=== PATIENT | female | born 1960 | race African-American/Black ===

== ENCOUNTER 2020-03-09 04:19 | Day surgery (SDC) | payer OTHER ==
[2020-03-08 10:34] VITALS: BMI 31.1
[2020-03-09] MEDS ORDERED: LIDOCAINE HCL 1%, 10 MG/ML (20ML VIAL) ONE (07:20)
[2020-03-09] MEDS ORDERED: DEXAMETHASONE SOD PHOSPHATE/PF 10 MG/ML SDV ONE (07:20)
[2020-03-09] MEDS ORDERED: LIDOCAINE HCL/PF 1% SDV 5ML VIAL ONE (07:20)
[2020-03-09] MEDS ORDERED: BUPIVACAINE HCL/PF 0.75% 10 ML VIAL ONE (07:21)
[2020-03-09] MEDS ORDERED: TRIAMCINOLONE ACET 40MG/1ML VIAL ONE (07:21)
[2020-03-09] MEDS ORDERED: IOHEXOL 180 MG/1 ML ML IJ ONE (08:54)
[2020-03-09] MEDS ORDERED: DEXAMETHASONE SOD PHOSPHATE 10 MG/1 ML VIAL IM ONE (08:55)
[2020-03-09] MEDS ORDERED: LIDOCAINE HCL 1% PRESERVATIVE FREE - 30ML VIAL IJ ONE (09:01)
[2020-03-09 09:50] VITALS: TEMP 97.7
[2020-03-09] MEDS ORDERED: ACETAMINOPHEN 325 MG TABLET (FP) ONE (10:14)
[2020-03-09 13:01] VITALS: BP 130/90; PULSE 80
== END 2020-03-09 10:20 | disposition home or self-care (01) ==
LOC: JASU-SURG 04:19
PROVIDERS: ATTEND Pain Medicine Pain Medicine
PROC: 3E0R33Z Introduction of Anti-inflammatory into Spinal Canal, Percutaneous Approach (ICD-10-PCS; 2020-03-09)
PROC: 3E0R3BZ Introduction of Anesthetic Agent into Spinal Canal, Percutaneous Approach (ICD-10-PCS; principal; 2020-03-09 09:00)
DX: M54.12 Radiculopathy, cervical region (principal)
CPT/HCPCS: 76000-TC-FY; J1100

== ENCOUNTER 2020-06-08 04:21 | Day surgery (SDC) | payer OTHER ==
[2020-06-07 12:39] VITALS: BMI 31.1
[2020-06-08] MEDS ORDERED: DEXAMETHASONE SOD PHOSPHATE/PF 10 MG/ML SDV ONE (07:24)
[2020-06-08] MEDS ORDERED: LIDOCAINE HCL/PF 1% SDV 5ML VIAL ONE (07:28)
[2020-06-08 11:00] VITALS: BP 141/89; PULSE 90; TEMP 97.8
== END 2020-06-08 10:54 | disposition home or self-care (01) ==
LOC: JASU-SURG 04:21
PROVIDERS: ATTEND Pain Medicine Pain Medicine
PROC: B01BYZZ Fluoroscopy of Spinal Cord using Other Contrast (ICD-10-PCS; 2020-06-08)
PROC: 3E0R33Z Introduction of Anti-inflammatory into Spinal Canal, Percutaneous Approach (ICD-10-PCS; principal; 2020-06-08 10:00)
DX: M54.12 Radiculopathy, cervical region (principal)
CPT/HCPCS: 76000-TC-FY

== ENCOUNTER 2023-03-06 14:42 | Inpatient (IN) | payer OTHER ==
[2023-03-06 14:54] VITALS: BMI 29.7
[2023-03-06 16:27] LABS: VENOUS BASE EXCESS -3.1 mmol/L (-2-2); VENOUS O2 SATURATION 32.7 % (70-80); VENOUS PCO2 43.8 mmHg (38-52); VENOUS PH 7.332 (7.310-7.410)
[2023-03-06] MEDS: ACETAMINOPHEN 1000 MG/100 ML BAG IVPB ONE (16:50)
[2023-03-06] MEDS: LACTATED RINGERS SOLUTION 1000 ML INFUS.BAG IV ONE ×2 (16:50→18:42)
[2023-03-06] MEDS ORDERED: ACETAMINOPHEN INJECTION 100 ML IVPB ONE (16:53)
[2023-03-06 16:58] LABS: HEMOGLOBIN 10.7 GM/dL (10.7-15.3); MCH 27.6 pg (25.7-33.7); MCHC 32.6 g/dl (32.0-36.0); MEAN CELL VOLUME 84.8 fl (80-96); MEAN PLT VOLUME 8.5 fl (7.5-11.1); PLATELET COUNT 432 10^3/uL (134-434); RDW 16.4 % (11.6-15.6); WHITE BLOOD COUNT 13.8 K/mm3 (4.0-10.0)
[2023-03-06 17:08] LABS: LACTIC ACID 4.4 mmol/L (0.4-2.0)
[2023-03-06 17:21] LABS: POTASSIUM 4.8 mmol/L (3.5-5.1)
[2023-03-06 17:26] LABS: CALCIUM 8.3 mg/dL (8.5-10.1)
[2023-03-06 17:27] LABS: ALBUMIN 2.7 g/dl (3.4-5.0)
[2023-03-06 17:29] LABS: BLOOD UREA NITROGEN 10.7 mg/dL (7-18)
[2023-03-06 17:30] LABS: CREATININE 1.3 mg/dL (0.55-1.3)
[2023-03-06] MEDS ORDERED: methylPREDNISolone NA SUCC 125 MG/2 ML VIAL ONE (17:30)
[2023-03-06] MEDS ORDERED: ALBUTEROL SO4 2.5/IPRATROPIUM 0.5 INH SOL 3 ML VIAL.NEB. NEB ONE (17:30)
[2023-03-06] MEDS ORDERED: ONDANSETRON 4 MG/2 ML VIAL ONE (17:30)
[2023-03-06 17:32] LABS: TOT PROT 6.9 g/dl (6.4-8.2)
[2023-03-06 17:34] LABS: BILIRUBIN,TOTAL 0.6 mg/dL (0.2-1)
[2023-03-06] MEDS: ONDANSETRON 4 MG/2 ML VIAL IVPUSH ONE (17:35)
[2023-03-06] MEDS: ALBUTEROL SO4 2.5/IPRATROPIUM 0.5 INH SOL 3 ML VIAL.NEB. NEB SCH (17:35)
[2023-03-06] MEDS: methylPREDNISolone NA SUCC 125 MG/2 ML VIAL IVPUSH ONE (17:35)
[2023-03-06 18:12] LABS: INR 1.14 (0.83-1.09)
[2023-03-06 18:13] LABS: PROTHROMBIN TIME (PATIENT) 13.2 SEC (9.7-13.0)
[2023-03-06 18:14] LABS: ACTIVATED PTT 28.8 SECONDS (25.2-36.5)
[2023-03-06 18:34] LABS: ERYTHROCYTE SEDIMENTATION RATE 86 mm/hr (0-30)
[2023-03-06 19:37] LABS: ANISOCYTOSIS 1+; MACROCYTOSIS 0; OVALOCYTE 1+
[2023-03-06 20:01] LABS: PLATELET ESTIMATE ADEQUATE
[2023-03-06] MEDS ORDERED: PIPERACILLIN/TAZOB 4.5 GM 3.375 GM in DEXTROSE 5%-WATER 100 ML IVPB ONE (20:51)
[2023-03-06] MEDS: PIPERACILLIN/TAZOB 3.375 GM 3.375 GM in DEXTROSE 5%-WATER - 50 ML IVPB ONE (21:45)
[2023-03-06 22:14] LABS: LACTIC ACID 4.3 mmol/L (0.4-2.0)
[2023-03-06] MEDS: VANCOMYCIN HCL 1,500 MG in DEXTROSE 5%-WATER - 500 ML IVPB ONE (23:12)
[2023-03-06] MEDS ORDERED: VANCOMYCIN 500 MG VIAL (RESTRICTED TO ID ONLY) ONE (23:14)
[2023-03-07] MEDS: methylPREDNISolone NA SUCC 40 MG/1 ML VIAL IVPUSH SCH ×3 (01:26→17:58)
[2023-03-07] MEDS: ALBUTEROL SO4 2.5/IPRATROPIUM 0.5 INH SOL 3 ML VIAL.NEB. NEB SCH (01:27)
[2023-03-07] MEDS ORDERED: ALBUTEROL SO4 2.5/IPRATROPIUM 0.5 INH SOL 3 ML VIAL.NEB. NEB ONE (01:39)
[2023-03-07] MEDS ORDERED: ALBUTEROL SO4 HFA INHALER IH PRN (02:28)
[2023-03-07] MEDS: PIPERACILLIN/TAZOB 4.5 GM 4.5 GM in DEXTROSE 5%-WATER 100 ML IVPB SCH ×2 (03:33→17:59)
[2023-03-07] MEDS: oxyCODONE HCL 5 MG TABLET PO ONE (05:41)
[2023-03-07] MEDS: ONDANSETRON 4 MG/2 ML VIAL IVPUSH PRN (05:41)
[2023-03-07] MEDS: MELATONIN 5 MG TABLETS PO ONE (05:42)
[2023-03-07] MEDS: AMITRIPTYLINE HCL 10 MG TABLET PO ONE (07:10)
[2023-03-07 09:59] LABS: HEMATOCRIT 26.4 % (32.4-45.2); HEMOGLOBIN 8.8 GM/dL (10.7-15.3); MCH 27.3 pg (25.7-33.7); MCHC 33.2 g/dl (32.0-36.0); MEAN CELL VOLUME 82.4 fl (80-96); MEAN PLT VOLUME 7.8 fl (7.5-11.1); PLATELET COUNT 372 10^3/uL (134-434); RDW 16.3 % (11.6-15.6); WHITE BLOOD COUNT 11.6 K/mm3 (4.0-10.0)
[2023-03-07 10:05] LABS: POTASSIUM 3.2 mmol/L (3.5-5.1)
[2023-03-07 10:06] LABS: CALCIUM 8.5 mg/dL (8.5-10.1)
[2023-03-07 10:07] LABS: ALBUMIN 2.5 g/dl (3.4-5.0); BLOOD UREA NITROGEN 11.1 mg/dL (7-18); MAGNESIUM 1.8 mg/dL (1.8-2.4)
[2023-03-07 10:10] LABS: PHOSPHOROUS 2.6 mg/dL (2.5-4.9)
[2023-03-07 10:11] LABS: BILIRUBIN,TOTAL 0.2 mg/dL (0.2-1); TOT PROT 5.8 g/dl (6.4-8.2)
[2023-03-07 10:14] LABS: LACTIC ACID 2.4 mmol/L (0.4-2.0)
[2023-03-07 10:26] LABS: ANISOCYTOSIS 3+; MACROCYTOSIS 0
[2023-03-07] MEDS: FLUTICASONE PROP 0.05% 16 GM NASAL SPRAY NS SCH (10:31)
[2023-03-07] MEDS: CYCLOBENZAPRINE HCL 10 MG TABLET (FP) PO SCH (10:31)
[2023-03-07] MEDS: ENOXAPARIN NA (PORCINE) 40 MG/0.4 ML DISP.SYRIN SQ SCH (10:32)
[2023-03-07] MEDS: BUDESONIDE/FORMETEROL FUMARATE 160/4.5 mcg INHALER IH SCH (10:32)
[2023-03-07] MEDS: TIMOLOL 0.5% OPHTHALMIC SOL 5 ML BOTTLE OU SCH (10:32)
[2023-03-07] MEDS: DORZOLAMIDE 2% HCL OPHTHALMIC SOLUTION 10 ML BOTTLE OU SCH (10:33)
[2023-03-07] MEDS: TIOTROPIUM BROMIDE 2.5 MCG (SPIRIVA) RESPIMAT INHALER IH SCH (10:33)
[2023-03-07] MEDS: LEFLUNOMIDE 10 MG TABLET PO SCH (14:30)
[2023-03-07] MEDS: AMITRIPTYLINE HCL 10 MG TABLET PO SCH (22:06)
[2023-03-07] MEDS: oxyCODONE HCL 5 MG TABLET PO SCH (22:09)
[2023-03-07] MEDS: LATANOPROST 0.005% OPHTH SOLN 2.5ML BOTTLE OU SCH (22:10)
[2023-03-08 08:33] LABS: HEMATOCRIT 23.7 % (32.4-45.2); HEMOGLOBIN 8.1 GM/dL (10.7-15.3); MCH 28.5 pg (25.7-33.7); MCHC 34.1 g/dl (32.0-36.0); MEAN CELL VOLUME 83.7 fl (80-96); MEAN PLT VOLUME 7.9 fl (7.5-11.1); PLATELET COUNT 337 10^3/uL (134-434); RBC 2.83 M/mm3 (3.60-5.2); RDW 16.6 % (11.6-15.6); WHITE BLOOD COUNT 13.9 K/mm3 (4.0-10.0)
[2023-03-08 10:12] LABS: ANISOCYTOSIS 2+; MACROCYTOSIS 0
[2023-03-08] MEDS: POTASSIUM CHLORIDE ORAL LIQUID 20 MEQ/15 ML PO ONE (11:16)
[2023-03-08] MEDS ORDERED: MAG HYDROX/AL HYDROX/SIMETH 30 ML UNIT-DOSE CUP PO PRN (11:19)
[2023-03-08] MEDS: oxyCODONE HCL 5 MG TABLET PO ONE ×2 (12:28→13:59)
[2023-03-08] MEDS: PANTOPRAZOLE SODIUM 40 MG VIAL IVPUSH SCH (12:29)
[2023-03-08] MEDS: ACETAMINOPHEN 325 MG TABLET (FP) PO ONE (12:29)
[2023-03-08] MEDS: MELATONIN 5 MG TABLETS PO PRN (22:26)
[2023-03-09 10:52] LABS: HEMATOCRIT 26.2 % (32.4-45.2); HEMOGLOBIN 8.9 GM/dL (10.7-15.3); MCH 28.4 pg (25.7-33.7); MCHC 34.2 g/dl (32.0-36.0); MEAN CELL VOLUME 83.2 fl (80-96); MEAN PLT VOLUME 7.8 fl (7.5-11.1); PLATELET COUNT 392 10^3/uL (134-434); RBC 3.14 M/mm3 (3.60-5.2); RDW 17.1 % (11.6-15.6); WHITE BLOOD COUNT 9.4 K/mm3 (4.0-10.0)
[2023-03-09 11:39] LABS: ANISOCYTOSIS 0; MACROCYTOSIS 0
[2023-03-09] MEDS: oxyCODONE HCL 5 MG TABLET PO PRN (13:26)
[2023-03-09 15:35] LABS: EPI CELLS 21 /uL (0-25.1); HYALINE CASTS 0 /uL (0-3.1); PH,URINE 6.5 (5.0-8.0); URINE APPEARANCE CLEAR; URINE BACTERIA 22 /uL (0-1359); URINE BILIRUBIN NEGATIVE (NEGATIVE); URINE COLOR YELLOW; URINE GLUCOSE (UA) NEGATIVE (NEGATIVE); URINE KETONE NEGATIVE (NEGATIVE); URINE LEUK ESTERASE TRACE (NEGATIVE); URINE NITRITE NEGATIVE (NEGATIVE); URINE PROTEIN TRACE (NEGATIVE); URINE RBC 6 /uL (0-23.9); URINE UROBILINOGEN 0.2 mg/dL (0.2-1.0); URINE WBC 8 /uL (0-25.8)
[2023-03-09 21:09] LABS: CYCLIC CITRULLINE PEPTIDE AB 15 units (0-19)
[2023-03-09] MEDS: DOCUSATE SODIUM 100 MG CAPSULE (FP) PO SCH (22:06)
[2023-03-10] MEDS ORDERED: LIDOCAINE HCL 1%, 10 MG/ML (50 mL VIAL) SQ ONE (09:37)
[2023-03-10 10:44] LABS: BASO % 0.2 % (0-2.0); HEMATOCRIT 27.9 % (32.4-45.2); HEMOGLOBIN 9.5 GM/dL (10.7-15.3); LYMPH % 3.1 % (8-40); MCH 28.5 pg (25.7-33.7); MEAN CELL VOLUME 83.8 fl (80-96); MEAN PLT VOLUME 7.6 fl (7.5-11.1); MONO % 7.1 % (3.8-10.2); NEUT % 89.6 % (42.8-82.8); PLATELET COUNT 407 10^3/uL (134-434); RBC 3.33 M/mm3 (3.60-5.2); RDW 16.7 % (11.6-15.6); WHITE BLOOD COUNT 9.1 K/mm3 (4.0-10.0)
[2023-03-10 10:51] LABS: POTASSIUM 3.6 mmol/L (3.5-5.1)
[2023-03-10 10:56] LABS: CALCIUM 7.6 mg/dL (8.5-10.1)
[2023-03-10 10:58] LABS: ALBUMIN 2.8 g/dl (3.4-5.0); MAGNESIUM 1.8 mg/dL (1.8-2.4)
[2023-03-10 11:00] LABS: CREATININE 1.3 mg/dL (0.55-1.3)
[2023-03-10 11:02] LABS: BILIRUBIN,TOTAL 0.3 mg/dL (0.2-1); TOT PROT 6.2 g/dl (6.4-8.2)
[2023-03-10] MEDS: LIDOCAINE HCL 1%, 10 MG/ML (20ML VIAL) SQ ONE (11:16)
[2023-03-10] MEDS ORDERED: ACETAMINOPHEN 325 MG TABLET (FP) PO PRN (11:50)
[2023-03-10] MEDS: ACETAMINOPHEN 325 MG TABLET (FP) PO SCH (13:01)
[2023-03-10] MEDS: MULTIVITAMINS (DAILY MVI) TABLET (FP) PO SCH (13:02)
[2023-03-10] MEDS: NICOTINE 21 MG/24 HOURS TOPICAL PATCH TD SCH (13:02)
[2023-03-10] MEDS ORDERED: ACETAMINOPHEN 1000 MG/100 ML BAG IVPB PRN (17:24)
[2023-03-10 20:11] VITALS: RESP 20
[2023-03-11 08:11] VITALS: BP 131/71; PULSE 80; TEMP 98.3
[2023-03-11 10:00] LABS: HEMATOCRIT 24.6 % (32.4-45.2); HEMOGLOBIN 8.4 GM/dL (10.7-15.3); LYMPH % 4.4 % (8-40); MCH 28.5 pg (25.7-33.7); MCHC 34.3 g/dl (32.0-36.0); MEAN CELL VOLUME 83.2 fl (80-96); MEAN PLT VOLUME 7.4 fl (7.5-11.1); MONO % 8.7 % (3.8-10.2); NEUT % 86.9 % (42.8-82.8); PLATELET COUNT 367 10^3/uL (134-434); RBC 2.95 M/mm3 (3.60-5.2); RDW 16.5 % (11.6-15.6); WHITE BLOOD COUNT 7.9 K/mm3 (4.0-10.0)
[2023-03-11 10:08] LABS: CHLORIDE 108 mmol/L (98-107); POTASSIUM 3.5 mmol/L (3.5-5.1); SODIUM 140 mmol/L (136-145)
[2023-03-11 10:10] LABS: ALBUMIN 2.4 g/dl (3.4-5.0); ANION GAP 6 mmol/L (4-13); CO2 26 mmol/L (21-32); MAGNESIUM 1.9 mg/dL (1.8-2.4)
[2023-03-11 10:12] LABS: BLOOD UREA NITROGEN 19.8 mg/dL (7-18)
[2023-03-11 10:13] LABS: SGPT/ALT 56 U/L (13-61)
[2023-03-11 10:14] LABS: CREATININE 1.1 mg/dL (0.55-1.3); SGOT/AST 18 U/L (15-37)
[2023-03-11 10:16] LABS: ALK PHOS 64 U/L (45-117); BILIRUBIN,TOTAL 0.3 mg/dL (0.2-1); GLUCOSE,RANDOM 120 mg/dL (74-106); TOT PROT 5.2 g/dl (6.4-8.2)
[2023-03-11 10:22] LABS: CALCIUM 6.7 mg/dL (8.5-10.1)
[2023-03-11] MEDS: CALCIUM (OYSTER SHELL) 500 MG TABLET (FP) PO SCH (11:52)
[2023-03-11 16:07] LABS: ATYPICAL pANCA <1:20 titer (Neg:<1:20); C-ANCA <1:20 titer (Neg:<1:20)
[2023-03-12] MEDS ORDERED: methylPREDNISolone NA SUCC 40 MG/1 ML VIAL IVPUSH SCH (10:00)
== END 2023-03-11 15:00 | disposition home or self-care (01) | DRG 190 ==
LOC: JER 14:42 → JERBED 17:41 → J8W 03-07 02:44
PROVIDERS: ADMIT Internal Medicine; ATTEND Nurse Practitioner Family
PROC: 0JBN0ZX Excision of Right Lower Leg Subcutaneous Tissue and Fascia, Open Approach, Diagnostic (ICD-10-PCS; principal; 2023-03-10)
DX: J44.1 Chronic obstructive pulmonary disease with (acute) exacerbation (principal); J18.9 Pneumonia, unspecified organism; J44.0 Chronic obstructive pulmonary disease with (acute) lower respiratory infection; I10 Essential (primary) hypertension; M06.9 Rheumatoid arthritis, unspecified; H40.9 Unspecified glaucoma; R21 Rash and other nonspecific skin eruption; L28.2 Other prurigo; L98.8 Other specified disorders of the skin and subcutaneous tissue; F17.210 Nicotine dependence, cigarettes, uncomplicated; G89.29 Other chronic pain; Z85.53 Personal history of malignant neoplasm of renal pelvis; Z66 Do not resuscitate; Z79.52 Long term (current) use of systemic steroids
CPT/HCPCS: 0241U-QW; 36415; 71045-TC-FY; 71250-TC; 74176-TC; 80053; 81003; 82803; 83520; 83605; 83690; 83735; 84100; 84484; 85025; 85610; 85651; 85730; 86038; 86140; 86160; 86162; 86200; 86256; 86431; 87040; 87070; 87081; 87205; 87899; 88305-TC; 93005; 93010; 93970-TC; 94640; 94761; 97116-GP; 97161-GP; 99285-25; J0131

== ENCOUNTER 2023-07-01 14:30 | Observation (INO) | payer OTHER ==
[2023-07-01 14:41] VITALS: BMI 29.2
[2023-07-01] MEDS ORDERED: ACETAMINOPHEN INJECTION 100 ML IVPB ONE (16:06)
[2023-07-01] MEDS ORDERED: ALBUTEROL SO4 2.5/IPRATROPIUM 0.5 INH SOL 3 ML VIAL.NEB. NEB ONE (16:06)
[2023-07-01 16:10] LABS: BASO % 0.4 % (0-2.0); EOS % 1.3 % (0-4.5); HEMATOCRIT 20.6 % (32.4-45.2); LYMPH % 9.7 % (8-40); MCH 22.7 pg (25.7-33.7); MCHC 32.3 g/dl (32.0-36.0); MEAN CELL VOLUME 70.3 fl (80-96); MEAN PLT VOLUME 7.9 fl (7.5-11.1); MONO % 7.9 % (3.8-10.2); NEUT % 80.7 % (42.8-82.8); PLATELET COUNT 401 10^3/uL (134-434); RBC 2.93 M/mm3 (3.60-5.2); RDW 21.9 % (11.6-15.6)
[2023-07-01 16:13] LABS: HEMOGLOBIN 6.6 GM/dL (10.7-15.3)
[2023-07-01 16:17] LABS: INR 1.06 (0.83-1.09)
[2023-07-01] MEDS: ALBUTEROL SO4 2.5/IPRATROPIUM 0.5 INH SOL 3 ML VIAL.NEB. NEB SCH (16:18)
[2023-07-01] MEDS: ACETAMINOPHEN 1000 MG/100 ML BAG IVPB ONE (16:18)
[2023-07-01 16:19] LABS: ACTIVATED PTT 25.1 SECONDS (25.2-36.5)
[2023-07-01 16:37] LABS: ANISOCYTOSIS 2+; MACROCYTOSIS 0
[2023-07-01] MEDS ORDERED: oxyCODONE HCL 5 MG TABLET ONE (16:42)
[2023-07-01] MEDS: oxyCODONE HCL 5 MG TABLET PO ONE (16:45)
[2023-07-01 16:56] LABS: BLOOD UREA NITROGEN 13.6 mg/dL (7-18); CALCIUM 8.7 mg/dL (8.5-10.1)
[2023-07-01 16:57] LABS: ALBUMIN 3.3 g/dl (3.4-5.0)
[2023-07-01 16:59] LABS: CREATININE 1.3 mg/dL (0.55-1.3)
[2023-07-01 17:01] LABS: BILIRUBIN,TOTAL 0.3 mg/dL (0.2-1); TOT PROT 6.4 g/dl (6.4-8.2)
[2023-07-01] MEDS ORDERED: METHOCARBAMOL 500 MG TABLET ONE (21:20)
[2023-07-01] MEDS: METHOCARBAMOL 500 MG TABLET PO ONE (21:23)
[2023-07-01 23:49] LABS: RETICULOCYTES 2.42 % (0.5-1.5)
[2023-07-02 01:00] VITALS: RESP 18
[2023-07-02] MEDS: hydrALAZINE HCL 10 MG TABLET PO ONE (03:36)
[2023-07-02] MEDS: ALBUTEROL SO4 HFA INHALER IH PRN (06:47)
[2023-07-02 08:15] LABS: EOS % 1.5 % (0-4.5); HEMATOCRIT 24.3 % (32.4-45.2); LYMPH % 17.3 % (8-40); MCH 24.7 pg (25.7-33.7); MCHC 32.9 g/dl (32.0-36.0); MEAN PLT VOLUME 7.5 fl (7.5-11.1); MONO % 13.6 % (3.8-10.2); NEUT % 67.6 % (42.8-82.8); PLATELET COUNT 294 10^3/uL (134-434); RBC 3.24 M/mm3 (3.60-5.2); RDW 23.6 % (11.6-15.6); WHITE BLOOD COUNT 9.5 K/mm3 (4.0-10.0)
[2023-07-02 08:35] LABS: POTASSIUM 3.5 mmol/L (3.5-5.1)
[2023-07-02 08:41] LABS: MAGNESIUM 1.9 mg/dL (1.8-2.4)
[2023-07-02 08:42] LABS: CALCIUM 8.2 mg/dL (8.5-10.1)
[2023-07-02 08:43] LABS: ALBUMIN 3.1 g/dl (3.4-5.0)
[2023-07-02 08:46] LABS: PHOSPHOROUS 2.6 mg/dL (2.5-4.9)
[2023-07-02 08:48] LABS: BILIRUBIN,TOTAL 0.7 mg/dL (0.2-1); TOT PROT 5.6 g/dl (6.4-8.2)
[2023-07-02] MEDS: CYCLOBENZAPRINE HCL 10 MG TABLET (FP) PO SCH (09:46)
[2023-07-02] MEDS: TIMOLOL 0.5% OPHTHALMIC SOL 5 ML BOTTLE OU SCH (09:47)
[2023-07-02] MEDS: predniSONE 10 MG TABLET (UD) PO SCH (09:47)
[2023-07-02] MEDS: DORZOLAMIDE 2% HCL OPHTHALMIC SOLUTION 10 ML BOTTLE OU SCH (09:48)
[2023-07-02] MEDS: BUDESONIDE/FORMETEROL FUMARATE 160/4.5 mcg INHALER IH SCH (11:42)
[2023-07-02] MEDS: LEFLUNOMIDE 10 MG TABLET PO SCH (11:43)
[2023-07-02] MEDS: oxyCODONE HCL 5 MG TABLET PO PRN (13:10)
[2023-07-02 13:49] LABS: BASO % 0.4 % (0-2.0); EOS % 0.5 % (0-4.5); HEMATOCRIT 27.4 % (32.4-45.2); HEMOGLOBIN 8.9 GM/dL (10.7-15.3); LYMPH % 5.6 % (8-40); MCHC 32.4 g/dl (32.0-36.0); MEAN CELL VOLUME 74.2 fl (80-96); MEAN PLT VOLUME 7.7 fl (7.5-11.1); MONO % 5.7 % (3.8-10.2); NEUT % 87.8 % (42.8-82.8); PLATELET COUNT 345 10^3/uL (134-434); RDW 23.4 % (11.6-15.6); WHITE BLOOD COUNT 11.2 K/mm3 (4.0-10.0)
[2023-07-02 15:51] VITALS: BP 146/94; PULSE 85; TEMP 98.6
[2023-07-02] MEDS ORDERED: AMITRIPTYLINE HCL 10 MG TABLET PO SCH (22:00)
== END 2023-07-02 15:00 | disposition home or self-care (01) ==
LOC: JER 14:30 → UNDOADMOB 22:24 → JERBED 22:24 → INTOOBSV 22:24 → JERBED 07-02 00:31 → J8W 07-02 00:31 → JERBED 07-02 12:43 → J8W 07-02 12:43
PROVIDERS: ADMIT Internal Medicine; ATTEND Nurse Practitioner Family
PROC: 30233N1 Transfusion of Nonautologous Red Blood Cells into Peripheral Vein, Percutaneous Approach (ICD-10-PCS; principal; 2023-07-02)
PROC: 3E033NZ Introduction of Analgesics, Hypnotics, Sedatives into Peripheral Vein, Percutaneous Approach (ICD-10-PCS; 2023-07-02)
PROC: 3E0F7GC Introduction of Other Therapeutic Substance into Respiratory Tract, Via Natural or Artificial Opening (ICD-10-PCS; 2023-07-02)
DX: R79.9 Abnormal finding of blood chemistry, unspecified (principal); D64.9 Anemia, unspecified; J44.9 Chronic obstructive pulmonary disease, unspecified; I10 Essential (primary) hypertension; M06.9 Rheumatoid arthritis, unspecified; R63.0 Anorexia; R73.03 Prediabetes; G89.29 Other chronic pain; R56.9 Unspecified convulsions; Z85.528 Personal history of other malignant neoplasm of kidney; F17.210 Nicotine dependence, cigarettes, uncomplicated
CPT/HCPCS: 0241U-QW; 36415; 36430; 71046-TC-FY; 74176-TC; 80053; 82272; 82728; 82962; 83540; 83550; 83735; 84100; 84466; 85025; 85045; 85610; 85730; 86850; 86900; 86901; 86922; 93005; 93010; 94640; 96374; 97116-GP; 97161-GP; 99285-25; G0378; J0131; P9038; P9058

== ENCOUNTER 2024-07-07 11:47 | Emergency (ER) | payer OTHER ==
[2024-07-07 12:03] VITALS: TEMP 98.4; BMI 26.9
[2024-07-07] MEDS: SODIUM CHLORIDE 0.9% 1000 ML INFUS.BAG IV ONE (12:25)
[2024-07-07 12:44] LABS: ABSOLUTE IMMATURE GRANULOCYTES 0.06 x10^3/uL (0.0-0.031); BASOPHILS # 0.03 x10^3/uL (0.01-0.08); EOSINOPHIL % 0.3 % (0.7-5.8); EOSINOPHILS # 0.03 x10^3/uL (0.04-0.36); HEMATOCRIT 31.1 % (34.1-44.9); HEMOGLOBIN 10.7 g/dL (11.2-15.7); MCHC 34.4 g/dl (32.2-35.5); MEAN CELL VOLUME 79.1 fl (79.4-94.8); MEAN PLT VOLUME 9.9 fl (9.4-12.3); MONOCYTE # 1.33 x10^3/uL (0.24-0.86); MONOCYTE % 13.6 % (4.7-12.5); PLATELET COUNT 299 x10^3/uL (182-369); RDW 15.6 % (12.4-16.4)
[2024-07-07 13:06] LABS: INR 0.95 (0.83-1.09); PROTHROMBIN TIME (PATIENT) 10.6 SEC (9.7-13.0)
[2024-07-07 13:09] LABS: ACTIVATED PTT 30.7 SECONDS (25.2-36.5)
[2024-07-07 13:34] LABS: ALBUMIN 4.2 g/dl (3.4-5.0); BILIRUBIN,TOTAL 0.3 mg/dl (0.2-1); CALCIUM 9.9 mg/dl (8.5-10.1); CREATININE 1.5 mg/dl (0.6-1.3); POTASSIUM 4.1 mmol/L (3.5-5.1); TOT PROT 6.2 g/dl (6.4-8.2)
[2024-07-07 14:27] VITALS: BP 131/84; PULSE 106; RESP 18
[2024-07-07 15:51] LABS: HCV DIAGNOSTIC IN-HOUSE W/RFLX NON-REACTIVE (NONREACTIVE)
[2024-07-07 15:52] LABS: HIV INTERPRETATION NEGATIVE (NEGATIVE)
== END 2024-07-07 15:40 | disposition home or self-care (01) ==
LOC: FER 11:47
DX: R42 Dizziness and giddiness (principal); R00.2 Palpitations; R06.02 Shortness of breath; R19.7 Diarrhea, unspecified
CPT/HCPCS: 36415; 71045-TC-FY; 80053; 83735; 84484; 85025; 85610; 85730; 86803; 87389; 93005; 99285-25